=== PATIENT | female | born 1970 | race Caucasian/White ===

== ENCOUNTER → 2017-02-06 | Outpatient (CLI) | payer BC ==
--- NOTE | ~2017-02-06 | US6 ---
[facility] A Service of [facility] & [facility] RADIOLOGY TEXT RESULTS PATIENT: JODI BERGMAN LOCATION: [facility] : 70 UNIT #: [id number] AGE: [address]: Regis Diego MD SEX: F ORDER DR: [id number] [facility] [address] [place], [place] [address] [id number] O MR#: [id number] Acc #: [id number] NAME: JODI BERGMAN : 1970 SEX: F STUDY DATE/TIME: 02/06/2017 16:20 UNIT: [facility] ROOM: STUDY DESCRIPTION: US Abdominal Limited Attending Physician: Regis Diego M.D. Referring Physician: Regis Diego M.D. Ordering Physician: Regis Diego M.D. Primary Care Physician: Regis Diego M.D. MEDICAL IMAGING REPORT This report is preliminary unless electronic signature is present EXAM Right upper quadrant ultrasound, 02/06/2017 COMPARISON 05/23/2010 CLINICAL HISTORY 3-week history of right upper quadrant abdominal pain with nausea and vomiting. FINDINGS There is a coarsened liver echotexture suggesting fatty infiltration but no mass is seen. There is no intra or extrahepatic biliary ductal dilatation. The gallbladder is normal without stone, wall thickening, or pericholecystic fluid. Limited visualized portions of the pancreas are normal. The right kidney is unremarkable. IMPRESSION Probable fatty infiltration of the liver otherwise normal negative right upper quadrant ultrasound. Dictated by... Kody Garnett M.D. THIS IS AN ELECTRONICALLY VERIFIED REPORT Kody Garnett M.D. at 02/11/2017 5:21 PM MADELIN/alexys TD: 02/07/2017 10:19 JOB #: [id number] MEDICAL IMAGING REPORT Page 1 of 1 COPY
== END | disposition home or self-care (01) ==
LOC: CWCC 15:30 → CGUS 15:52 → CWCC 16:00
DX: R10.13 Epigastric pain (principal)
CPT/HCPCS: 76705